=== PATIENT | male | born 1970 | race Caucasian/White ===

== ENCOUNTER 2023-02-11 11:38 | Day surgery (SDC) | payer BC, MEDICAID ==
[~2023-02-11] VITALS: Ht 182.9 cm; Wt 137.4 kg
[~2023-02-11 11:38] MED LIST: DEXI30CA2 PO; GNPTAB37 PO; METH2.5T48 PO; NS 1,000 ML IV ONE
[2023-02-11] MEDS ORDERED: propofoL 200 MG/20 ML VIAL As Ordered ONE (13:08)
[2023-02-11] MEDS ORDERED: LIDOCAINE 2% 100MG/5ML SDV (FOR ANES.) As Ordered ONE (13:09)
[2023-02-11] MEDS ORDERED: fentaNYL 100 MCG/2 ML INJECTION As Ordered ONE (13:39)
[2023-02-11 14:33] VITALS: BP 132/74; TEMP 96.8; O2SAT 100
== END 2023-02-11 14:37 | disposition home or self-care (01) ==
LOC: M OPP 11:38
PROVIDERS: ATTEND Internal Medicine Gastroenterology
DX: R13.10 Dysphagia, unspecified (principal); K29.70 Gastritis, unspecified, without bleeding; K21.00 Gastro-esophageal reflux disease with esophagitis, without bleeding; R12 Heartburn; M06.9 Rheumatoid arthritis, unspecified; Z79.899 Other long term (current) drug therapy; Z91.048 Other nonmedicinal substance allergy status
CPT/HCPCS: 43239; 88305; J3010